=== PATIENT | female | born 1985 | race Caucasian/White ===

== ENCOUNTER 2022-08-18 15:21 | Emergency (ER) | payer BC, OTHER ==
[2022-08-18 15:47] VITALS: BP 145/88; PULSE 103; RESP 16; TEMP 98
[2022-08-18] MEDS ORDERED: HIV POST EXPOSURE PROPHYLAXIS KIT NR ONE (16:40)
[2022-08-18 16:59] LABS: HEMATOCRIT 38.6 % (32.4-45.2); MCH 29.6 pg (25.7-33.7); MCHC 33.7 g/dl (32.0-36.0); MEAN CELL VOLUME 87.7 fl (80-96); MEAN PLT VOLUME 11.2 fl (7.5-11.1); PLATELET COUNT 225 10^3/uL (134-434); WHITE BLOOD COUNT 8.3 K/mm3 (4.0-10.0)
[2022-08-18] MEDS ORDERED: HIV POST EXPOSURE PROPHYLAXIS KIT PO ONE (17:06)
[2022-08-18 17:08] LABS: POTASSIUM 3.9 mmol/L (3.5-5.1)
[2022-08-18 17:10] LABS: CALCIUM 8.9 mg/dL (8.5-10.1)
[2022-08-18 17:11] LABS: ALBUMIN 3.7 g/dl (3.4-5.0); BLOOD UREA NITROGEN 17.6 mg/dL (7-18)
[2022-08-18 17:14] LABS: CREATININE 0.9 mg/dL (0.55-1.3)
[2022-08-18 17:16] LABS: BILIRUBIN,TOTAL 0.4 mg/dL (0.2-1); TOT PROT 6.6 g/dl (6.4-8.2)
[2022-08-18 17:43] LABS: SYPHILIS W/ RPR CONF NON-REACTIVE (NONREACTIVE)
[2022-08-18 18:12] LABS: HIV INTERPRETATION NEGATIVE (NEGATIVE)
== END 2022-08-18 17:51 | disposition home or self-care (01) ==
LOC: JER 15:21 → JERFT 15:21
DX: S61.432A Puncture wound without foreign body of left hand, initial encounter (principal); B16.9 Acute hepatitis B without delta-agent and without hepatic coma; W46.0XXA Contact with hypodermic needle, initial encounter
CPT/HCPCS: 36415; 80053; 84703; 85027; 86780; 86803; 87389; 87517; 99283-25